=== PATIENT | male | born 1990 | race Two or more races ===

== ENCOUNTER 2018-08-13 17:05 | Emergency (ER) | payer MEDICAID, OTHER ==
[~2018-08-13] VITALS: Ht 175.3 cm; Wt 68.0 kg
[2018-08-13 17:14] VITALS: BP 110/61
== END 2018-08-13 20:02 | disposition home or self-care (01) ==
LOC: ER 17:11
DX: R41.82 Altered mental status, unspecified (principal); F10.129 Alcohol abuse with intoxication, unspecified; F17.210 Nicotine dependence, cigarettes, uncomplicated
CPT/HCPCS: Z7502

== ENCOUNTER 2018-09-27 11:27 | Emergency (ER) | payer MEDICAID, OTHER ==
[~2018-09-27] VITALS: Ht 172.7 cm; Wt 78.9 kg
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
[2018-09-27] MEDS ORDERED: IV NS 0.9% 1,000 ML BAG IV ONE (12:00)
--- NOTE | 2018-09-27 12:10 | NUR ---
LINE ESTABLISHED AND IVF INFUSING. PT PHILIPPE WELL. XRAY AT BEDSIDE.
[2018-09-27 12:11] LABS: BASOPHILS # (AUTO) 0.1 /CMM (0.0-0.2); BASOPHILS % (AUTO) 0.8 % (0.0-2.0); EOSINOPHILS % (AUTO) 0.3 % (0.0-6.0); HEMATOCRIT 44 % (39-51); HEMOGLOBIN 14.9 g/dL (13.5-17.5); LYMPHOCYTES # (AUTO) 2.2 /CMM (0.8-4.8); LYMPHOCYTES % (AUTO) 23.5 % (20.0-44.0); MEAN CORPUSCULAR HGB CONC 34 g/dl (31.0-36.0); MEAN CORPUSCULAR VOLUME 99 fL (80-96); MONOCYTES # (AUTO) 0.8 /CMM (0.1-1.30); MONOCYTES % (AUTO) 8.1 % (2.0-12.0); NEUTROPHILS # (AUTO) 6.3 /CMM (1.8-8.9); NEUTROPHILS % (AUTO) 67.3 % (43.0-81.0); PLATELET COUNT (AUTO) 229 /CMM (150-450); RED BLOOD CELL COUNT(AUTO) 4.42 MIL/uL (4.5-6.0); WHITE BLOOD COUNT (AUTO) 9.3 K/uL (4.3-11.0)
[2018-09-27 12:22] LABS: CALCIUM, SERUM 8.9 mg/dL (8.5-10.1); CARBON DIOXIDE 28 mmol/L (21-32); CHLORIDE 103 mmol/L (98-107); CREATININE 0.7 mg/dL (0.6-1.3); GLUCOSE 109 mg/dL (74-106); POTASSIUM 2.8 mmol/L (3.5-5.1); SODIUM SERUM 137 mmol/L (136-145); UREA NITROGEN, BLOOD 5 mg/dL (7-18)
[2018-09-27 12:27] LABS: ALANINE AMINOTRANSFERASE 198 U/L (12-78); ALBUMIN 3.8 g/dL (3.4-5.0); ALKALINE PHOSPHATASE 97 U/L (46-116); ASPARTATE AMINOTRANSFERASE 103 U/L (15-37); BILIRUBIN,DIRECT 0.1 mg/dL (0.0-0.2); BILIRUBIN,TOTAL 0.2 mg/dL (0.2-1.0); TOTAL PROTEIN, SERUM 7.1 g/dL (6.4-8.2)
--- NOTE | 2018-09-27 12:40 | NUR ---
PT ASLEEP IN BED. VSS. NO COMPLAINTS AT THIS TIME. WILL CONT TO MONITOR.
[2018-09-27] MEDS ORDERED: POTASSIUM CHLORIDE 20 MEQ TAB.PRT.SR PO ONE ×2 (12:48→13:00)
[2018-09-27 13:00] LABS: THYROID STIMULATING HORMONE 0.599 uIU/mL (0.358-3.74)
--- NOTE | 2018-09-27 13:00 | NUR ---
MEDS GIVEN. IVF COMPLETE. URINE COLLECTED AND SENT TO STAT LAB
[2018-09-27 13:05] LABS: APPEARANCE,URINE Clear (CLEAR); BILIRUBIN,URINE Negative (NEGATIVE); BLOOD, URINE Negative Ery/uL (NEGATIVE); COLOR,URINE Yellow (YELLOW); KETONES,URINE Negative (NEGATIVE); LEUKOCYTE ESTERASE ,URINE Negative (NEGATIVE); NITRITE, URINE Negative (NEGATIVE); PH,URINE 7.5 (5.0-8.0); PROTEIN,URINE Negative (NEGATIVE); UGLUCOSE Negative (NEGATIVE); UROBILINOGEN,URINE 0.2 EU/dL (0.2)
--- NOTE | 2018-09-27 13:45 | NUR ---
IV removed. Catheter intact and site benign. Pressure and 4x4 applied to site. No bleeding noted. Patient discharged to home in stable condition. Written and verbal after care instructions given. Patient verbalizes understanding of instruction.
[2018-09-27 13:54] VITALS: BP 110/68
== END 2018-09-27 13:45 | disposition home or self-care (01) ==
LOC: ER 11:34
DX: R07.89 Other chest pain (principal); E87.6 Hypokalemia; F15.10 Other stimulant abuse, uncomplicated; F17.210 Nicotine dependence, cigarettes, uncomplicated
CPT/HCPCS: 36415; 71045; 80048; 80076; 80305; 81001; 83735; 84443; 84484; 85025; 93005; 99284; A4606; J7030 ×2; 81000-TC

== ENCOUNTER 2020-08-15 12:43 | Emergency (ER) | payer OTHER ==
[~2020-08-15] VITALS: Ht 172.7 cm; Wt 79.4 kg
--- NOTE | 2020-08-15 12:50 | NUR ---
[id number] FROM LONGTERM HOUSE FOUND UNRESPONSIVE. 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 ZOFRAN 4MG GIVEN.PT AWAKE, AGITATED. BG 113 BREAD PACKER. PER EMS HEROIN OD. vs checked. hooked on monitor. pt awake, alert and talking. aox3.
--- NOTE | 2020-08-15 14:05 | NUR ---
Social Service Consult: SW consult requested by ER staff for a 29 year old male currently resides a [facility] sober living ), [address] [place] [address]. REMIGIO met with pt at ER bed 11 and conducted an assessment. Pt made poor eye contact during the assessment. Pt. alert and oriented x4 ( time, place, self, and situation). Pt appears to be in an anxious mood. Pt.'s speech is within normal limits. Patient states he is in the hospital because of his current relapse due to ETOH. Pt state last relapse before hospitalization was one week. Pt states he has been under the influence of ETOH for quite come time with no specific duration. Pt. denies suicidal and homicidal ideation. Pt denies any visual or auditory hallucinations as well. Pt. stated he has no Hx. mental health & no psychotropic medications. Pt. states has a history of substance abuse (ETOH) and denies being under any other substances. Pt. appear groomed and has appropriate clothing. Pt. appears to be ambulatory with a steady gait. Pt stated he has additional support system with his family ([id number] [facility] [place] [address]([phone]). Point of contact will be the father, Domenico Vyas ([phone]). REMIGIO provided substance abuse referral packet. Pt is receptive towards resources. Pt states he wants to return back to [facility] once he is medically discharge. REMIGIO spoke to Trish Ace, [employer] ([phone]) to verify if the pt can return back to the sober living once discharge from the hospital. [facility] ) has agree to have the pt return after discharge. REMIGIO provided the pt with a brief substance abuse intervention with referrals to substance abuse programs; [facility] Self-help line ([phone]); [facility] [address] [place] [address] ([phone]); [facility] [id number] [place] [address] ([phone]); [facility] program ([phone]; [facility] ([phone]); [facility] ([phone]); [facility] ([phone]). Plan:: Pt. was given the appropriate resources to find additional substance abuse clinics and sober livings. Pt will return to [facility] sober living ) after discharging from the hospital.
--- NOTE | 2020-08-15 14:45 | NUR ---
CALLED [facility] ETA IS 60-75 MINS.
--- NOTE | 2020-08-15 15:05 | NUR ---
Patient discharged to home , escorted out by security, did not want to leave the facility premises.
[2020-08-15 15:56] VITALS: BP 130/86
== END 2020-08-15 15:56 | disposition home or self-care (01) ==
LOC: ER 12:44
DX: T40.1X1A Poisoning by heroin, accidental (unintentional), initial encounter (principal); F17.210 Nicotine dependence, cigarettes, uncomplicated; Y92.89 Other specified places as the place of occurrence of the external cause